=== PATIENT | male | born 1995 ===

== ENCOUNTER 2019-01-10 12:54 | Outpatient (CLI) | payer BC ==
--- NOTE | 2019-01-10 14:48 | ULT ---
BILATERAL TESTICULAR ULTRASOUND WITH GRAYSCALE AND COLORFLOW AND SPECTRAL DOPPLER IMAGING: HISTORY: Left-sided scrotal mass. FINDINGS: The right testis measures 3 x 4.6 x 2.3 cm and the left testis measures 2.6 x 4.7 x 2.8 cm. Symmetri c blood flow is seen to both testes and epididymides. No testicular mass or microlithiasis is identi fied. No hydroceles are seen. There is a 5 mm cyst in the left epididymal head. The epididymides a re otherwise unremarkable. There are left-sided extratesticular tubular structures with increased fl ow during Valsalva, consistent with varicocele. IMPRESSION: 1. Left-sided varicocele. 2. Left epididymal head cyst/spermatocele. POS: ERIC
== END 2019-01-10 12:55 | disposition home or self-care (01) ==
LOC: BICULT 12:54
PROVIDERS: ATTEND Physician Assistant
DX: N50.89 Other specified disorders of the male genital organs (principal); I86.1 Scrotal varices; N43.40 Spermatocele of epididymis, unspecified
CPT/HCPCS: 76870; 93976